=== PATIENT | female | born 1975 | race Caucasian/White ===

== ENCOUNTER 2022-08-31 09:08 | Outpatient (CLI) | payer BC ==
[2022-08-31 15:47] LABS: CHOL/HDL RATIO 4.9 (<4.4); CHOLESTEROL 199 mg/dL; HDL CHOLESTEROL 41 mg/dL; LDL CHOLESTEROL,CALCULATED 121 mg/dL; TRIGLYCERIDES 187 mg/dL; VLDL CHOLESTEROL 37 mg/dL
[2022-08-31 15:54] LABS: T4 (THYROXINE) 6.05 ug/dL (6.09-12.23)
[2022-08-31 15:57] LABS: THYROID STIMULATING HORMONE 4.63 uIU/mL (0.34-5.60)
[2022-08-31 20:36] LABS: ESTIMATED AVERAGE GLUCOSE 100 mg/dL (70-100); HEMOGLOBIN A1c% 5.1 % (4.27-6.07)
== END 2022-08-31 09:09 | disposition home or self-care (01) ==
LOC: LAB.S 09:08
PROVIDERS: ATTEND Nurse Practitioner
DX: R63.5 Abnormal weight gain (principal)
CPT/HCPCS: 36415; 80061; 83036; 83721; 84436; 84443; 84480

== ENCOUNTER 2022-11-21 09:50 | Outpatient (CLI) | payer BC ==
--- NOTE | 2022-11-22 10:54 | Mammography Report ---
BILATERAL DIGITAL SCREENING MAMMOGRAM 3D/2D: 11/21/2022 CLINICAL: Routine screening. Baseline exam. No prior exams were available for comparison. Both breasts are almost entirely fatty (category a/<25% glandular tissue). No significant masses, calcifications, or other findings are seen in either breast. IMPRESSION: NEGATIVE There is no mammographic evidence of malignancy. A 1 year screening mammogram is recommended. Based on the Tyrer Cuzick model (a risk assessment model) the patients lifetime risk is 6.6% and her 10 year risk is 1.2%. According to the ACR, ACS, and NCCN guidelines, an annual breast MRI exam subhash g with mammogram is recommended if the patients lifetime risk is 20% or greater. This exam was interpreted at Station ID: [id number]. NOTE: For mammograms, a report in lay terms will be sent to the patient. Approximately 15% of breast malignancies will not be visualized mammographically. In the management of a palpable breast mass, a negative mammogram must not discourage biopsy of a clinically suspicious lesion. Electronically Signed By: Macario vivas/zeinab:11/21/2022 11:30:55 letter sent: No_Letter ACR BI-RADS Category 1: Negative 3341F PARENCHYMAL PATTERN: (F) - The breast(s) demonstrate(s) diffuse fatty replacement. BI-RADS CATEGORY: (1) - 1 Mammogram [id number] 1 year screening LATERALITY: (B)
== END 2022-11-21 09:51 | disposition home or self-care (01) ==
LOC: DI.S 09:50
PROVIDERS: ATTEND Nurse Practitioner
DX: Z12.31 Encounter for screening mammogram for malignant neoplasm of breast (principal)

== ENCOUNTER 2023-04-18 12:36 | Outpatient (CLI) | payer BC ==
[2023-04-18 14:35] LABS: HCT - HEMATOCRIT 40.9 % (37.0-47.0); HGB - HEMOGLOBIN 13.1 g/dL (12.0-16.0); MEAN CORPUSCULAR HEMOGLOBIN 29.2 pg (27.0-31.0); MEAN CORPUSCULAR VOLUME 91.1 fL (81.0-99.0); MEAN PLATELET VOLUME 10.4 fL (7.9-10.8); RED BLOOD COUNT 4.49 10^6/uL (4.20-5.40); RED CELL DISTRIBUTION WIDTH 12.5 % (12.0-15.0); WHITE BLOOD COUNT 8.2 x10^3/uL (4.8-10.8)
[2023-04-18 14:54] LABS: CHOL/HDL RATIO 4.3 (<4.4); CHOLESTEROL 197 mg/dL; HDL CHOLESTEROL 46 mg/dL; LDL CHOLESTEROL,CALCULATED 90 mg/dL; TRIGLYCERIDES 304 mg/dL (48-352); VLDL CHOLESTEROL 61 mg/dL
[2023-04-18 15:04] LABS: ESTIMATED AVERAGE GLUCOSE 100 mg/dL (70-100); HEMOGLOBIN A1c% 5.1 % (4.27-6.07)
[2023-04-18 15:07] LABS: THYROID STIMULATING HORMONE 2.19 uIU/mL (0.34-5.60)
[2023-04-18 15:14] LABS: FERRITIN 27.5 ng/mL (11.0-306.8)
== END 2023-04-18 12:37 | disposition home or self-care (01) ==
LOC: LAB.S 12:36
PROVIDERS: ATTEND Nurse Practitioner
DX: E07.9 Disorder of thyroid, unspecified (principal); Z13.220 Encounter for screening for lipoid disorders; Z86.2 Personal history of diseases of the blood and blood-forming organs and certain disorders involving the immune mechanism
CPT/HCPCS: 36415; 80061; 82728; 83036; 83721; 84436; 84443; 84480; 85027

== ENCOUNTER 2023-09-11 08:00 | Outpatient (CLI) | payer BC ==
--- NOTE | 2023-09-11 15:14 | XRAY Report ---
PROCEDURE: Foot 3+V LT INDICATIONS: PAIN IN LEFT FOOT TECHNIQUE: 3 views of the foot were acquired. COMPARISON: None. FINDINGS: Bones: No fractures or dislocations. No suspicious bony lesions. Soft tissues: No suspicious soft tissue calcifications or masses. IMPRESSION: No acute bony abnormality. Reviewed by: Agustin Tirvedi MD on 09/11/2023 3:13 PM [facility] Approved by: Agustin Trivedi MD on 09/11/2023 3:13 PM [facility] Station ID: [id number]
== END 2023-09-11 23:59 | disposition home or self-care (01) ==
LOC: DI.S 08:00
PROVIDERS: ATTEND Emergency Medicine
DX: M79.672 Pain in left foot (principal)

== ENCOUNTER 2023-09-15 16:37 | Emergency (ER) | payer BC ==
[2023-09-15 17:00] VITALS: BP 132/75; O2SAT 100
--- NOTE | 2023-09-15 17:04 | ED Physician Documentation ---
PD HPI HEADACHE - Stated complaint Stated Complaint: REIS - Chief complaint Chief Complaint: Heent - History obtained from History obtained from: Patient - History of Present Illness Timing - onset: How many days ago (3) Timing - onset during: Light activity (She noted the headache initially on which is normal 3 days ago when she first got up out of bed. Noticed it more with movement and turning of the head. No noted injury prior. No vision change. No focal weakness. Headache occipital on the right side. No tenderness.) Timing - duration: Days (3) Timing - details: Gradual onset, Still present Worst headache ever?: No: Worst headache ever? (She does have a history of migraines that she gets about once monthly or so.) Location: Back, Right Quality: Throbbing, Aching Associated symptoms: Nausea. No: Fever, Stiff neck, Weakness, Numbness Improved by: Rest (holding still, be it lying down or sitting. Worse with movement.) Worsened by: No: Light, Noise Contributing factors: No: Hypertension, Recent illness, Trauma Similar symptoms before: Has not had sx before (has migraines frequently about every 2-4 weeks. treated with excedrin and rest. Usually one sided, with light sensitive and nausea. Current headache has different character.) Review of Systems Constitutional: denies: Fever, Chills, Myalgias, Fatigue Nose: denies: Rhinorrhea / runny nose, Congestion Throat: denies: Sore throat Respiratory: denies: Dyspnea PD PAST MEDICAL HISTORY - Past Medical History Neuro: Migraines Endocrine/Autoimmune: HyPOthyroidism Psych: Depression Musculoskeletal: Chronic back pain - Past Surgical History /[employer]: section - Present Medications Home Medications: Ambulatory Orders Medication Instructions Recorded Confirmed Levothyroxine [Synthroid] 50 mcg PO QDAC 09/15/23 09/15/23 Sertraline [Zoloft] 50 mg PO DAILY 09/15/23 09/15/23 - Allergies Allergies/Adverse Reactions: Allergies Allergy/AdvReac Type Severity Reaction Status Date / Time No Known Drug Allergies Allergy Verified 09/15/23 16:57 - Social History Does the pt smoke?: No Smoking Status: Never smoker Does the pt drink ETOH?: Yes Does the pt have substance abuse?: No PD ED PE NORMAL - Vitals Vital signs reviewed: Yes - General General: Alert and oriented X 3, Well developed/nourished - HEENT HEENT: PERRL, EOMI, Pharynx benign - Neck Neck: Supple, no meningeal sign, No bony TTP, No adenopathy, Other (does not have tenderness at occipital ridge nor occiptal nerve foramina. Not tender in muscles. No rash,redness nor sores. ) - Cardiac Cardiac: RRR - Respiratory Respiratory: Clear bilaterally Results - Vitals Vitals: Vital Signs - 24 hr 09/15/23 09/15/23 16:51 19:29 Temperature 36.2 C L Heart Rate 50 L Respiratory 18 16 Rate Blood Pressure 132/75 H O2 Saturation 100 Oxygen O2 Source Room air - Rads (name of study) head CT Relevant Findings:: Prelim report reviewed (no acute changes ), EMP independent interpretation of test PD Medical Decision Making - ED course Complexity details: reviewed results (Head CT without acute intracranial changes. ), re-evaluated patient (Pt was at least 50% better after initial dosing of fluids, toradol, Compazine. Was going to give small dose dilaudid but she satates pain down to just 20% and she prefers not more meds now. Presume atypical functional headache/migraine. ), considered differential (different character of headache compared to migraines she gets. No local tenderness. No rash nor sores. Pain more in neck and not over top of scalp to suggest nerve root. Can get CT to eval for ICH or structural changes. Does not seem infectious. Did not have injury. No focal deficits. ), d/w patient Departure - Departure Disposition: 01 Home, Self Care Clinical Impression: Occipital headache Condition: Stable Record reviewed to determine appropriate education?: Yes Instructions: ED Cephalgia Unspecified Follow-Up: Sofie Avila PA [Primary Care Provider] - Comments: Your CT scan does not show any acute abnormalities in my view of it. Do not have the official radiology report as yet. Will contact you if it discrepancy between my view and the report. At this point would presume a functional headache category such as atypical migraine or nerve irritation (occipital neuritis). You do not have a tenderness in that area nor in the scalp so less likely to be conditions such as early shingles or certainly not a skin infection. At this point we are sending you home with ondansetron if needed for nausea and hydrocodone if needed for pain. There is just a few tablets of each. Start with Tylenol or ibuprofen or naproxen if needed for any residual headache. Add in the other medicines if needed for worse symptoms. See how you are over the next couple of days. Follow-up with your primary care or back to the ER if you have persisting headache symptoms or new things develop such as any change in vision or localized numbness or weakness, skin rash or sores etc. Otherwise if this improves And resolves into tomorrow then will go with the atypical migraine and continue normal activity etc. For subsequent typical migraines for you, continue your usual prior care. Forms: PCP List Discharge Date/Time: 09/15/23 19:29
[2023-09-15] MEDS: KETOROLAC 30 MG/ML VIAL IVP STA (17:59)
[2023-09-15] MEDS: SODIUM CHLORIDE 0.9% 1,000 ML IV STA (17:59)
[2023-09-15] MEDS: PROCHLORPERAZINE 10 MG/2 ML VIAL IVP STA (18:03)
[2023-09-15] MEDS: DEXAMETHASONE 10 MG/ML VIAL IVP STA (18:06)
[2023-09-15] MEDS: HYDROmorphone 0.5 MG/0.5 ML SYRINGE IVP STA (19:11)
[2023-09-15] MEDS: HYDROcod/ACET 5/325 Prepack 4 PO STA (19:11)
[2023-09-15] MEDS: ONDANSETRON ODT 4 MG Prepack 2 TL PRN (19:11)
--- NOTE | 2023-09-15 19:28 | CT Report ---
PROCEDURE: CT brain without contrast INDICATIONS: right headache 3 days without obvious cause TECHNIQUE: Helical axial CT of the brain was obtained without contrast and reformatted in multiple p lanes. Radiation dose reduction was achieved using automated exposure control or adjustment of mA and /or kV according to patient size. COMPARISON: None FINDINGS: CSF spaces: Ventricles are appropriate in size and position. No hydrocephalus. Basal cisterns unre markable. Brain: No midline shift. No intracranial masses or hemorrhage. Villasenor-white matter interface is norm al. Skull and face: Calvarium and skull base are unremarkable without suspicious lesion. Sinuses: Visualized sinuses and mastoids are clear. IMPRESSION: Unremarkable CT of the brain Reviewed by: Nik Greene MD on 09/15/2023 6:27 PM [facility] Approved by: Nik Greene MD on 09/15/2023 6:27 PM [facility] Station ID: [id number]
== END 2023-09-15 19:29 | disposition home or self-care (01) ==
LOC: ED 16:37
DX: G44.89 Other headache syndrome (principal)
CPT/HCPCS: 96374; 96375; 99284